=== PATIENT | male | born 2000 | race Caucasian/White ===

== ENCOUNTER 2020-04-14 22:12 | Emergency (ER) | payer BC, OTHER ==
[~2020-04-14] VITALS: Ht 182.9 cm; Wt 74.1 kg
--- NOTE | 2020-04-14 22:21 | ED Upper Extremity ---
General Chief Complaint: Upper Extremity Stated Complaint: FISH HOOK RIGHT MIDDFLE FINGER History of Present Illness Date Seen by Provider: Apr 14, 2020 Time Seen by Provider: 22:20 Initial Comments fish hook R middle finger tonight. Onset: just prior to arrival Allergies and Home Medications Allergies Coded Allergies: No Known Drug Allergies (Unverified , 04/14/20) Home Medications Doxycycline Hyclate 100 Mg Tablet, 100 MG PO BID Prescribed by: SHIV SEYMOUR on 04/14/20 8485 Patient Home Medication List Home Medication List Reviewed: Yes Review of Systems Constitutional: no symptoms reported Genitourinary: see HPI, pain, other (fish hook stuck in R Hand Mid finger) Past Wmiclch-Pspspq-Uhnuwd Hx Past Med/Social Hx: Reviewed Nursing Past Med/Soc Hx Patient Social History Recent Foreign Travel: No Contact w/Someone Who Travel: No Physical Exam Vital Signs Vital Signs - First Documented 04/14/20 22:34 Temp 36.0 Pulse 85 Resp 18 B/P (MAP) 135/82 O2 Delivery Room Air Capillary Refill : Height, Weight, BMI Height: '" Weight: lbs. oz. kg; BMI Method: General Appearance: WD/WN, no apparent distress Hand: normal ROM, Right, soft tissue tenderness Neurologic/Psychiatric: no motor/sensory deficits Skin: normal color, warm/dry fish hoot buried deep in soft tissue of R hand Middle finger distal phalynx (volar). Procedures/Interventions I&D : I & D Procedure: betadine prep Progress digital block RH Mif Finger w 6cc 1% lidocaine. tolerated well. Fish hook then reversed out using a pair of hemostats w minimal tissue injury. NO need to incise. tolerated well. Progress/Results/Core Measures Results/Orders My Orders Orders - SHIV SEYMOUR DO Lidocaine 1% Inj 20 Ml (Xylocaine 1% Inj (04/14/20 22:30) Lidocaine 1% Inj 20 Ml (Xylocaine 1% Inj (04/14/20 22:45) Vital Signs/I&O 04/14/20 22:34 Temp 36.0 Pulse 85 Resp 18 B/P (MAP) 135/82 O2 Delivery Room Air Departure Impression Primary Impression: Fishing hook foreign body Qualified Codes: W45.8XXA - Other foreign body or object entering through skin, initial encounter Disposition: 01 HOME, SELF-CARE Condition: Improved Departure-Patient Inst. Decision time for Depature: 22:49 Referrals: NO,LOCAL PHYSICIAN (PCP/Family) Primary Care Physician Patient Instructions: Foreign Body in Skin Scripts Doxycycline Hyclate (Doxycycline Hyclate) 100 Mg Tablet 100 MG PO BID, #10 TAB 0 Refills Prov: SHIV SEYMOUR DO 04/14/20 SHIV SEYMOUR DO Apr 14, 2020 22:21
--- OUTSIDE RECORDS SUMMARY | 2020-04-14 22:21 | XMS REPORT ---
Author Author Link Hernandez Doctor Organization [facility] Address Unknown Phone Unavailable Care Team Providers Care Investor Relations Coordinator Name Role Phone Migration, Doctor Unavailable Unavailable PROBLEMS No Known Problems ALLERGIES No Information ENCOUNTERS Encounter Location Date Diagnosis [facility] IN [facility] [address] [facility] [address] [place] [address] May, Open nondisplaced fracture o f distal phalanx of left ring finger, initial encounter S62.665B ; Injury of left hand, initial encounter S69.92XA ; Work related injury Y99.0 and Encounter for immunization Z23 [facility] [address] [facility] [address] [place] [address] Nov, Routine physical examination Z00.00 and Pre-employment drug testing, encounter for Z02.1 [address] [id number] [place] [address] February, Sports physical Z02.5 ; Exercise certified drug counselor ing Z71.89 and Dietary counseling Z71.3 [place] [id number] [place] [address] February, [id number] [place] [address] February, [address] [id number] [place] [address] Jul, IMMUNIZATIONS No Known Immunizations SOCIAL HISTORY Never Assessed REASON FOR VISIT PLAN OF CARE VITAL SIGNS Height 66 in 2014-02-15 Weight 112 lbs 2014-02-15 Temperature 98.5 degrees Fahrenheit 2014-02-15 Heart Rate 66 bpm 2014-02-15 Blood pressure systolic 112 mmHg 2014-02-15 Blood pressure diastolic 70 mmHg 2014-02-15 MEDICATIONS No Known Medications RESULTS No Results PROCEDURES Procedure Date Ordered Result Body Site VISUAL ACUITY SCREEN February 15, 2014 INSTRUCTIONS MEDICATIONS ADMINISTERED No Known Medications
--- OUTSIDE RECORDS SUMMARY | 2020-04-14 22:21 | XMS REPORT | Continuity of Care Document ---
Author Organization Unknown Address Unknown Phone Unavailable Allergies There is no data. Medications There is no data. Problems There is no data. Procedures There is no data. Results There is no data. Encounters ACCT No. Visit Date/Time Discharge Status Pt. Type Provider Facility Loc./Unit Complaint [id number] 06/06/2019 07:00:00 06/06/2019 23:59:[address] [facility]
[2020-04-14] MEDS ORDERED: LIDOCAINE 1% INJ 20 ML 20 ML VIAL ONE (22:30)
[2020-04-14] MEDS ORDERED: LIDOCAINE 1% INJ 20 ML 20 ML VIAL INJ ONE (22:45)
[2020-04-14] MEDS ORDERED: DOXY100T2 PO (22:49)
== END 2020-04-14 22:53 | disposition home or self-care (01) ==
LOC: ER FS 22:17
DX: S61.242A Puncture wound with foreign body of right middle finger without damage to nail, initial encounter (principal)